=== PATIENT | female | born 1985 | race Caucasian/White ===

== ENCOUNTER 2017-05-19 02:08 | Emergency (ER) | payer BC, MEDICAID ==
[2017-05-19 02:29] VITALS: BP 132/85
[2017-05-19] MEDS ORDERED: Cephalexin 500 MG Cap PO ONE (03:13)
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
--- NOTE | 2017-05-19 07:39 | CR ---
Right thumb: Three views of the right thumb were obtained. Comparison: No previous study. Soft tissue injury is seen distally. Very small portion of the distal tuft is missing. No additional fracture or other bony abnormality is seen. Impression: 1. Minimal bony avulsion involving a portion of the tuft of the distal thumb. 2. No proximal abnormality is seen. Diagnostic code #2
== END 2017-05-19 03:39 | disposition home or self-care (01) ==
LOC: MERGE 02:08 → JD.ED 02:08
DX: S68.521A Partial traumatic transphalangeal amputation of right thumb, initial encounter (principal); F17.210 Nicotine dependence, cigarettes, uncomplicated; Z98.890 Other specified postprocedural states; W27.8XXA Contact with other nonpowered hand tool, initial encounter; Y93.89 Activity, other specified
CPT/HCPCS: 73140; 99283; A9270; 99284